=== PATIENT | female | born 1950 | race Caucasian/White ===

== ENCOUNTER → 2018-08-12 11:22 | Outpatient (CLI) | payer MEDICARE, OTHER, SELFPAY | PROVIDERS: PCP Nurse Practitioner Family; Visit Provider Nurse Practitioner Family | DX: R00.2 Palpitations (principal) | CPT/HCPCS: 93225; 93226 ==

== ENCOUNTER → 2020-03-09 11:17 | Outpatient (CLI) | payer MEDICARE, SELFPAY ==
--- NOTE | 2020-03-09 11:23 | XR_ITS ---
PROCEDURE: XR FOOT RT MIN 3V CLINICAL INDICATION: RT FOOT PAIN COMPARISON: No exams were available for comparison FINDINGS: No fracture or dislocation. No lytic or blastic change. There is normal mineralization. There are mild osteoarthritic changes of the midfoot with bony spurring along the dorsal aspect of the metatarsal tarsal joint. Other findings:None. IMPRESSION: Degenerative changes Dictated by: Francis Walls MD 03/09/2020 17:17 Francis Walls MD in [place] 03/09/2020 17:17
== END ==
PROVIDERS: PCP Nurse Practitioner Family; Visit Provider Nurse Practitioner Family
DX: M79.671 Pain in right foot (principal)
CPT/HCPCS: 73630

== ENCOUNTER → 2020-03-20 09:29 | Outpatient (CLI) | payer MEDICARE, SELFPAY ==
--- NOTE | 2020-03-20 09:30 | MR_ITS ---
PROCEDURE: MR FOOT RT WO/W CON CLINICAL INDICATION: Soft Tissue Mass of Right Foot COMPARISON: CR XR FOOT RT MIN 3V from 03/09/2020 TECHNIQUE: Routine multiplanar multi echo sequences are performed without and with gadolinium enhancement. FINDINGS: A marker is placed along the dorsal aspect of the foot in the midfoot area medially. This white area of palpable concern. At this region, there is prominent bony hypertrophy and spurring the 1st metatarsal tarsal joint at the junction of the cuneiform and the base of the 1st metatarsal. There is some minimal bone marrow edema at this region. Osteoarthritic changes are present at this joint. Mild edema also noted within the talus which is nonspecific. There is also some focal increased T2 signal involving the distal aspect of the cuboid consistent with subchondral cystic changes. There are osteoarthritic changes the 1st metatarsal tarsal joint. There is thinning of the ATFL which may be due to sprain or partial tear. The study is not tailored to the ankle. The PT FL and deltoid ligament appear intact. There is some edema on long the medial malleolar region. Soft tissue swelling is present at the ankle. Small amount fluid is present within the tendon sheath of the posterior tibialis and the flexor digitorum longus suggesting tenosynovitis. Flexor hallucis longus and Achilles tendon has an unremarkable appearance. This is suspicious for tear of the peroneus longus. The remaining tendon at the plantar region appears slightly prominent and may be due to tendon retraction. IMPRESSION: 1. Palpable abnormality corresponds to prominent bony hypertrophy/spurring at the 1st metatarsal tarsal joint. No cyst or soft tissue mass 2. Osteoarthritic changes as described above with subchondral cystic changes of the cuneiform. There is mild edema of the talus centrally and posteriorly which is of questionable etiology. 3. Suspect tear of the peroneus longus tendon. 4. Thinning of the ATFL suspicious for partial tear or sprain Dictated by: Francis Walls MD 04/15/2020 08:31 Francis Walls MD in [place] 04/15/2020 08:31
== END ==
PROVIDERS: PCP Nurse Practitioner Family; Visit Provider Podiatrist
DX: M79.89 Other specified soft tissue disorders (principal); M79.671 Pain in right foot; M89.8X7 Other specified disorders of bone, ankle and foot
CPT/HCPCS: 73720; A9576

== ENCOUNTER → 2020-04-15 10:50 | Outpatient (CLI) | payer MEDICARE, SELFPAY ==
--- NOTE | 2020-04-15 10:58 | XR_ITS ---
PROCEDURE: XR CHEST 2V CLINICAL HISTORY: SINUSITIS,CONGESTION COMPARISON: No exams were available for comparison FINDINGS: The cardiomediastinal silhouette and pulmonary vascularity are within normal limits. The lungs are clear without infiltrates, suspicious nodules, or pleural effusions. No acute bony abnormalities. IMPRESSION: No acute findings. Dictated by: Francis Walls MD 04/15/2020 16:42 Francis Walls MD in [place] 04/15/2020 16:42
--- NOTE | 2020-04-15 11:28 | ECG_ITS ---
APPROVED REPORT Exam: Resting ECG HR:60 bpm ECG Measurements Heart Rate 60 AXES UT 154 P 67 QRSd 70 QRS 74 QT 402 T 64 QTc 402 Conclusion Normal sinus rhythm Normal ECG Electronically signed by : Jono Hill, 04/15/2020 19:26:10
== END ==
PROVIDERS: PCP Nurse Practitioner Family; Visit Provider Podiatrist
DX: Z01.818 Encounter for other preprocedural examination (principal); M89.8X7 Other specified disorders of bone, ankle and foot; M79.89 Other specified soft tissue disorders
CPT/HCPCS: 71046; 93005

== ENCOUNTER 2020-04-21 06:16 | Day surgery (SDC) | payer MEDICARE, SELFPAY ==
[2020-04-19 09:22] VITALS: BMI 30.9
[2020-04-21] VITALS (11 sets, daily range): BP systolic 117–149; BP diastolic 64–88; PULSE 51–73; RESP 12–18; TEMP 36.2–43; O2SAT 93–97
--- NOTE | 2020-04-21 07:19 | HMH.OPNOTE ---
Date of procedure: 04/21/20 Pre-op Diagnosis:: 1. Right foot exostosis 2. Right foot soft tissue mass Post-op Diagnosis:: Same Procedure performed:: 1. Right foot exostectomy 2. Right foot excision of soft tissue mass Surgeon:: Brigitte Vanessa DPM [employer]KE [employer]ILL CLEANER:: Timur Degroot Anesthesia: local (30cc 0.5% marcaine plain) Estimated blood loss (mL): 10 Clinical Note:: This is a 69-year-old female who presents for follow-up of her right foot pain. She had recent MRI 03/20/2020 to evaluate for exostosis and possible soft tissue mass. She reports pain with closed toed shoe gear and compression. She has failed conservative care, treatment included ice, elevation, NSAIDs, strapping, taping, modification of shoe gear, stretching, ROM. Conservative treatment discussed but has been exhausted. We discussed surgery including removal of the dorsal spurring and excision of any fluid or mass. Patient does have arthritis we discussed the cause of the exostosis is secondary to arthritis and joint jamming. Patient does not want to have extensive surgery at this time. We discussed arthrodesis, tendon repairs. Patient would just like to proceed with removing the spur so she can continue wearing close toed shoes and exercise regularly, walks twice daily with her dog she understands that there is a chance that she may continue to have pain secondary to arthritis. All risks and benefits were discussed including but not limited to: recurrence of the mass, damage to blood vessels and nerves, bleeding, infection, wound complications, need for further surgery, prolonged swelling of the extremity, prolonged pain, RSD/CRPS, DVT/PE, and anesthetic complications including . No guarantees were given. All questions fully answered. The patient verbalized understanding and agreed to proceed with surgery. Consent was obtained. Necessary labs and pre-op testing ordered including ekg, cxr and covid. Patient saw her PCP for [place] 03/04/2020. Labs taken: Glucose 71, potassium 5.7, hemoglobin A1c 6.2%, lipid panel and microalbumin within normal limits. Pt was given a Rx for Percocet 5/325, Zofran, Naproxen. A pre-fabricated nonpneumatic short fracture (walking) was dispensed and fitted at office visit. She has walker and cane at home. Operative findings:: Large dorsal exostosis noted to the medial dorsal foot over the metatarsal cuneiform joint. Less than 1 x 1 cm ganglion cyst with gel-filled fluid noted overlying extensor tendon. Small amount of synovial fluid located within the joint. No signs of infection noted. Operative note:: On this date and time, the patient was deemed an appropriate surgical candidate. With informed consent signed, the patient was taken to the operating theater. The patient was positioned supine. General anesthesia was induced. Tourniquet was applied to the right mid calf. The right lower extremity was prepped and draped in normal sterile fashion. RIGHT EXCISION OF GANGLION CYST/SOFT TISSUE MASS: The tourniquet was inflated at 225 mmHg. Attention was directed to the dorsal foot where the lazy S incision was mapped out extending over the dorsal first metatarsal cuneiform joint. Dissection was carried through skin to subcutaneous tissue with care taken to maintain surgical hemostasis and safely retract neurovascular structures. The extensor tendons were visualized and soft tissue mass noted over the extensor just superior to the joint. The soft tissue mass suspected ganglion cyst was dissected and was approximately 1x1 cm, gently clear fluid noted. The ganglion cyst was excised and sent to pathology as a specimen. The wound was flushed with copious amounts normal sterile saline. RIGHT FOOT EXOSTECTOMY: Dissection was then carried down to the level of the bone. Bony prominence noted over the 1st metatarsal base and cuneiform. Cartilage worn to the joint. Rondure was used to remove dorsal spur. Power reciprocating rasp then used to smooth down the area. Wound was flushed with copi
--- NOTE | 2020-04-21 08:05 | P.PN_ITS ---
[facility] Anesthesia Checklist - Structural Data Admitted From: Home Planned Operative Procedure/s: removal mass r foot Consent for Planned Operative Procedure(s) Verified: Yes - Additional verifications Anesthesia Reactions: Yes (drowsiness) Hx Blood Transfusions: No Blood Transfusion Reaction: No - Airway Assessment C-Spine Mobility Assessed: Yes TMJ Mobility Assessed: Yes Dentition: Good Dentition - Neurological Assessment Level of Consciousness: Awake, Alert, Appropriate - Anesthesia Plan Anesthesia Risk discussed: Yes Anesthesia Plan: Verified ASA Class: II Anesthesia Type: General [facility] History I have reviewed the patient's past medical history: Yes Medical History: Reports:: Anxiety, Diabetes Mellitus Type 2 Denies:: Cancer, Diabetes Mellitus Type 1, Internal Pacemaker, MRSA, Seizures *Have you ever received a pneumonia vaccine?: No *Have you received a flu vaccine this season?: No Other Medical History: Denies: Blood Transfusion Reaction Anesthesia experience/problems:: none Other Surgeries: Yes: No Previous Surgery, Colonoscopy. No: Pacemaker Amputation: No - *Social History Last grade of school completed: Some college Smoking Status: Never smoker Alcohol Intake: current Alcohol Intake Frequency:: holidays/special occasions only Substance Use Type: denies use *Occupational Status:: retired Housing: house Household Members: spouse *Travel in the last 8 weeks: None - Psychiatric History Pschychiatric History:: Reports:: Anxiety Family Hx:: Diabetes, Cancer, Hypertension
--- NOTE | 2020-04-21 08:06 | HMH.ANESI ---
[facility] Anesthesia Record Part I Intake, IV Amount: 1,000 Estimated blood loss (mL): 0 Urine output (mL): 0 Blood Pressure: 149/85 SaO2: 93 Pulse Rate: 73 Respiratory Rate: 12 Temperature: 97.4 F Patient is:: Awake, Stable Stable to PACU at:: 08:00
--- NOTE | 2020-04-21 08:39 | SUR.PHASEI ---
[id number]
--- NOTE | 2020-04-21 09:00 | XR_ITS ---
PROCEDURE: XR FOOT RT MIN 3V CLINICAL INDICATION: Post op exostectomy COMPARISON: CR XR FOOT RT MIN 3V from 03/09/2020 FINDINGS: Status post exostectomy at the dorsal aspect the 1st metatarsal tarsal junction. Good alignment with no acute finding. IMPRESSION: Interval exostectomy at the 1st metatarsal tarsal junction Dictated by: Francis Walls MD 04/21/2020 10:43 Francis Walls MD in [place] 04/21/2020 10:43
[2020-04-21 09:31] LABS: POC Glucose,Bedside 84 (70-110)
[2020-04-21 11:44] LABS: POC Glucose,Bedside 87 (70-110)
--- NOTE | 2020-04-22 10:35 | P.PN_ITS ---
[facility] Anesthesia Record Part II Discharge Time: 08:30 Destination: [facility] PACU nurse assessment reviewed?: Yes Patient Condition:: Good Anesthesia Complications:: None Swallowing reflex intact?: Yes Cyanosis?: No Blood Pressure: 135/64 Pulse Rate: 60 Temperature: 98.0 F Mental Status: Alert & Oriented Pain level:: 0 Nausea and/or vomitting:: None Intake, IV Amount: 1,500
[2020-04-22 10:37] VITALS: BP 135/64; PULSE 60; TEMP 36.7
== END 2020-04-21 09:10 | disposition home or self-care (01) ==
LOC: OR 06:19
PROVIDERS: PCP Nurse Practitioner Family; Visit Provider Podiatrist
PROC: (CPT 28090; principal; 2020-04-21 07:30)
DX: M77.51 Other enthesopathy of right foot and ankle (principal); M19.071 Primary osteoarthritis, right ankle and foot; M67.471 Ganglion, right ankle and foot; E11.9 Type 2 diabetes mellitus without complications; Z79.84 Long term (current) use of oral hypoglycemic drugs; Z79.899 Other long term (current) drug therapy; M79.671 Pain in right foot
CPT/HCPCS: 28090; 28104; 73630; 82962; 88305; 88311; 96374; J2405

== ENCOUNTER → 2020-11-24 10:36 | Outpatient (CLI) | payer MEDICARE, SELFPAY ==
--- NOTE | 2020-11-24 10:36 | MM_ITS ---
PROCEDURE: MM DIG SCREENING MAMM BI W/CAD Digital Breast Tomosynthesis Included CLINICAL INDICATION: screening mammogram COMPARISON: No exams were available for comparison TECHNIQUE: Standard CC and MLO images and 3D Tomosynthesis was obtained. R2 CAD reviewed. FINDINGS: Fatty day average fibroglandular tissue. There are multiple small bilateral benign-appearing nodular opacities and benign-appearing calcifications. A small cluster probably benign calcifications are present in the central aspect of the left breast. No malignant appearing mass or malignant-appearing microcalcification. No skin thickening or adenopathy. IMPRESSION: Probably benign findings. Suggest 6 month follow-up to confirm a stable baseline. BI-RAD Category: 3 Probably Benign Finding Short Term Follow-Up FOLLOW-UP: 6M 6 Month Follow-up (A letter has been sent to the patient regarding results of the study.) Dictated by: Francis Walls MD 11/29/2020 13:38 Francis Walls MD in [place] 11/29/2020 13:38
== END ==
PROVIDERS: PCP Nurse Practitioner Family; Visit Provider Obstetrics & Gynecology
DX: Z12.31 Encounter for screening mammogram for malignant neoplasm of breast (principal)
CPT/HCPCS: 77063; 77067

== ENCOUNTER → 2020-12-08 17:42 | Outpatient (CLI) | payer MEDICARE, SELFPAY | PROVIDERS: Visit Provider Nurse Practitioner Family | DX: R30.0 Dysuria (principal) | CPT/HCPCS: 87086; 87088; 87186 ==

== ENCOUNTER → 2021-03-08 11:05 | Outpatient (CLI) | payer MEDICARE, SELFPAY ==
[2021-03-08 11:49] LABS: Alanine Aminotransferase 19 U/L (12-78); Albumin Level 4.7 g/dl (3.5-5.0); Albumin/Globulin Ratio 1.8 (1.1-1.8); Alkaline Phosphatase 83 U/L (38-126); Anion Gap 9.4 mEq/L (5-15); Aspartate Amino Transferase 29 U/L (14-36); Bilirubin,Total 1.5 mg/dl (0.2-1.3); Blood Urea Nitrogen 13 mg/dl (7-17); Calcium 10.9 mg/dl (8.4-10.2); Carbon Dioxide 30 mmol/L (22.0-30.0); Chloride 105 mmol/L (98-107); Chol/HDL Ratio 3.5 (1-3.5); Cholesterol 263 mg/dl (140-200); Estimated Glomerular Filt Rate 83 ml/min (>60); GFR (African American) 101 ML/MIN (>60); Globulin 2.6 g/dL (1.3-3.2); Glucose 100 mg/dl (74-100); HDL Cholesterol 75 mg/dl (40-60); Potassium 4.4 mmoL/L (3.5-5.1); Sodium 140 mmol/L (136-145); Total Protein,Serum 7.3 g/dl (6.3-8.2); Triglycerides 145 mg/dl (30-150); VLDL Cholesterol 29 mg/dL (0-40)
[2021-03-08 12:01] LABS: Direct LDL Cholesterol 157.56 mg/dL (100-129)
[2021-03-08 12:02] LABS: Hemoglobin A1C 5.8 % (4.0-6.0)
[2021-03-08 12:07] LABS: 25-OH Vitamin D, Total 48.3 ng/mL (30-100)
== END ==
PROVIDERS: Visit Provider Nurse Practitioner Family
DX: E11.29 Type 2 diabetes mellitus with other diabetic kidney complication (principal); E55.9 Vitamin D deficiency, unspecified; Z79.84 Long term (current) use of oral hypoglycemic drugs
CPT/HCPCS: 36415; 80053; 80061; 82306; 83036

== ENCOUNTER → 2021-05-30 14:25 | Outpatient (CLI) | payer MEDICARE, SELFPAY ==
--- NOTE | 2021-05-30 14:26 | MM_ITS ---
PROCEDURE INFORMATION: Exam: MG Left Diagnostic Breast Tomosynthesis Exam date and time: 05/30/2021 2:26 PM Age: 71 years old Clinical indication: Six-month follow-up for nodular opacities and left breast calcifications TECHNIQUE: Imaging protocol: Left Diagnostic tomosynthesis and 2D mammography including computer-aided detection (CAD) when performed. Unilateral or bilateral exam. COMPARISON: MG MM DIG SCREENING MAMM BI W/CAD 11/24/2020 10:42 AM FINDINGS: MAMMOGRAPHY: The breast tissue is composed of scattered areas of fibroglandular density. There is no stellate mass, architectural distortion or suspicious microcalcifications to suggest malignancy. No skin thickening or axillary adenopathy. IMPRESSION: No mammographic evidence of malignancy. Annual bilateral mammographic screening is recommended in October 2021 unless otherwise clinically indicated. ASSESSMENT: BI-RADS Category 1: Negative
== END ==
PROVIDERS: PCP Nurse Practitioner Family; Visit Provider Obstetrics & Gynecology
DX: N64.4 Mastodynia (principal)
CPT/HCPCS: 77061; 77065; G0279

== ENCOUNTER 2021-06-23 17:26 | Emergency (ER) | payer MEDICARE, SELFPAY ==
[2021-06-23 19:00] VITALS: BP 161/98; PULSE 68; RESP 19; TEMP 36.8; O2SAT 98; BMI 29.0
[2021-06-23 19:57] VITALS: BP 161/98; PULSE 68; RESP 19; TEMP 36.8; O2SAT 98
--- NOTE | 2021-06-23 20:00 | HMH.EDUTC ---
[facility] Disposition Clinical Impression: Finger laceration Qualifiers: Encounter type: initial encounter Finger: thumb Damage to nail status: without damage Foreign body presence: unspecified Laterality: left Qualified Code(s): S61.012A - Laceration without foreign body of left thumb without damage to nail, initial encounter Disposition: Home, Self-Care Condition on Discharge: Good Instructions: DI for Laceration Repair, How to Care for a Laceration After Repair Additional Instructions: Suture instructions: You have required stitches today. Please read the following instructions so you know how to care for them: 1. Keep wound area dry for the first 24 hours. 2 May clean gently with mild soap and water, after 48 hours to prevent crusting over suture knots. 3. You may shower if your provider gives permission but do not take a bath until the skin is healed.. 4. Never leave a wet dressing or Band-Aid on your stitches as this allows bacteria to reach the area and may cause infection. Band-aids can cause the wound to sweat and not recommended to wear for long periods of time Watch for signs of infection: Increasing redness, tenderness or warmth around the suture site Unusual swelling around the site Appearance of pus around each suture or any red streaks Fever If you develop any of the above signs or symptoms of infection, Follow up with Family Physician immediately 5. Suture removal in _7-10___days 6. Return to [facility] or follow up with family doctor for removal. This can be done by any medical provider during regular hours on Sunday through Sunday, by appointment. Referrals: Emma Loomis APRN [Primary Care Provider] - As needed Time of Disposition: 20:08 Medical Decision Making - Syed Inquiry Pt receiving controlled substance: No Syed was queried for this patient: No Vital Signs: 06/23/21 19:00 06/23/21 19:57 Temperature 98.3 F 98.3 F Temperature Source Oral Pulse Rate 68 Pulse Rate [Right Brachial] 68 Respiratory Rate 19 19 Blood Pressure 161/98 H Blood Pressure [Right Arm] 161/98 H Blood Pressure Mean [Right Arm] 119 Blood Pressure Source [Right Arm] Automatic Cuff Blood Pressure Position [Right Arm] Sitting 02 Sat by Pulse Oximetry 98 Oxygen Delivery Method Room Air [facility] HPI - General Stated complaint: Ao06/23/21@1715 R thumb lac Time Seen by Provider: 06/23/21 20:00 Mode of Arrival: Ambulatory Source of Information: Patient Limitations: No Limitations Description of Symptoms (Recalled from Triage Doc. by RN): PATIENT C/O LACERATION TO LEFT THUMB AFTER CUTTING IT ON A VEGGIE SLICER HEENT Symptoms (Recalled from RN notes): No Resp Symptoms (Recalled from RN notes): No Skin Symptoms (Recalled from RN notes): Yes MS Symptoms (Recalled from RN notes): No Functional Status (Recalled from RN notes): WNL - History of Present Illness Provider Complaint: Patient states that she was using a veggie slicer and it slipped and cut her on her left thumb States she applied pressure to help with the bleeding States that they brought her in to get her checked and her finger laceration fixed - Related Data Home Medications Medication Instructions Recorded Confirmed alprazolam 0.5 mg tablet 0.5 mg PO DAILY tab 03/15/20 05/27/20 ascorbic acid 100 mg-elderberry 100 tab PO DAILY 03/15/20 05/27/20 fruit 50 mg chewable tablet calcium carb 300 mg-D3 800 1 tab PO DAILY 03/15/20 05/27/20 unit-mag ox 25 mg-ems helicopter pilot 0.5 mg-bhanu-Zn tablet lisinopril 10 mg tablet 10 mg PO DAILY tab 03/15/20 05/27/20 metformin 500 mg tablet 500 mg PO DAILY tab 03/15/20 05/27/20 milk thistle 150 mg capsule 150 mg PO DAILY 03/15/20 05/27/20 vitamin B complex 1 tab PO DAILY 03/15/20 05/27/20 Allergies Allergy/AdvReac Type Severity Reaction Status Date / Time No Known Allergies Allergy Verified 11/11/20 15:36 - Worker's Comp Is this a Worker's Comp case?: No [facility] History - Hepatitis A Screen Drug use hist
== END 2021-06-23 20:21 | disposition home or self-care (01) ==
PROVIDERS: Emergency Provider Nurse Practitioner; PCP Nurse Practitioner Family
DX: S61.012A Laceration without foreign body of left thumb without damage to nail, initial encounter (principal); E11.9 Type 2 diabetes mellitus without complications; F41.9 Anxiety disorder, unspecified; Z79.84 Long term (current) use of oral hypoglycemic drugs; Z79.899 Other long term (current) drug therapy; Z82.49 Family history of ischemic heart disease and other diseases of the circulatory system; Z83.3 Family history of diabetes mellitus; Z80.9 Family history of malignant neoplasm, unspecified
CPT/HCPCS: 12001; 99283

== ENCOUNTER → 2021-09-06 09:50 | Outpatient (CLI) | payer MEDICARE, SELFPAY ==
[2021-09-06 10:56] LABS: Basophils # 0.2 K/mm3 (0-0.2); Basophils % 4.3 % (0.1-2.0); Eosinophils # 0.1 K/mm3 (0.0-0.4); Eosinophils % 1.8 % (0.1-12.0); Hematocrit 44.4 % (37.0-47.0); Hemoglobin 14.8 g/dL (12.2-16.2); Lymphocytes # 1.6 K/mm3 (0.7-4.5); Lymphocytes % 29.3 % (10-50); Mean Corpuscular HGB Conc 33.3 g/dL (31.8-35.4); Mean Corpuscular Hemoglobin 31.6 pg (27.0-31.2); Mean Corpuscular Volume 94.9 fl (81-99); Mean Platelet Volume 9.1 fl (7.4-10.4); Monocytes # 0.3 K/mm3 (0.1-1.0); Monocytes % 5.7 % (1.7-9.3); Neutrophils # 3.5 K/mm3 (1.8-7.8); Neutrophils % 63.1 % (37.0-80.0); Platelet Count 154 K/mm3 (142-424); Red Blood Count 4.68 M/mm3 (4.20-5.40); Red Cell Distribution Width 13.3 % (11.5-17.5); White Blood Count 5.6 K/mm3 (4.8-10.8)
[2021-09-06 11:20] LABS: Chloride 108 mmol/L (98-107); Potassium 4.4 mmoL/L (3.5-5.1); Sodium 140 mmol/L (136-145)
[2021-09-06 11:22] LABS: Alanine Aminotransferase 17 U/L (12-78); Aspartate Amino Transferase 24 U/L (14-36); Blood Urea Nitrogen 13 mg/dl (7-17); Estimated Glomerular Filt Rate 83 ml/min (>60); GFR (African American) 100 ML/MIN (>60)
[2021-09-06 11:23] LABS: Albumin Level 4.3 g/dl (3.5-5.0); Alkaline Phosphatase 74 U/L (38-126); Anion Gap 10.4 mEq/L (5-15); Bilirubin,Total 0.8 mg/dl (0.2-1.3); Calcium 10.7 mg/dl (8.4-10.2); Carbon Dioxide 26 mmol/L (22.0-30.0); Cholesterol 215 mg/dl (140-200); Globulin 2.1 g/dL (1.3-3.2); Glucose 102 mg/dl (74-100); Total Protein,Serum 6.4 g/dl (6.3-8.2); Triglycerides 97 mg/dl (30-150); VLDL Cholesterol 19 mg/dL (0-40)
[2021-09-06 11:24] LABS: Chol/HDL Ratio 3.6 (1-3.5); HDL Cholesterol 59 mg/dl (40-60)
[2021-09-06 11:35] LABS: Direct LDL Cholesterol 134.31 mg/dL (100-129)
[2021-09-06 11:53] LABS: Hemoglobin A1C 5.6 % (4.0-6.0)
[2021-09-06 12:17] LABS: Microscopic, Urine URINE MICROSCOPIC (MICROSCOPIC)
[2021-09-06 13:13] LABS: Appearance,Urine CLOUDY (Clear); Bilirubin,Urine Negative (Negative); Blood, Urine Negative (Negative); Color,Urine YELLOW (Yellow); Glucose,Urine (UA) Negative (Negative); Ketones,Urine Negative (Negative); Leukocyte Esterase,Urine 2+ (Negative); Nitrate,Urine Negative (Negative); Protein,Urine Negative (Negative); Urobilinogen,Urine 0.2 EU/dl (0.2)
[2021-09-06 13:37] LABS: Bacteria,Urine 4+ /lpf; RBC,Urine Occasional #/hpf (0-3); WBC,Urine 20-50 #/hpf (0-3)
== END ==
PROVIDERS: PCP Nurse Practitioner Family; Visit Provider Nurse Practitioner Family
DX: E11.29 Type 2 diabetes mellitus with other diabetic kidney complication (principal); R30.0 Dysuria; E78.5 Hyperlipidemia, unspecified; B95.2 Enterococcus as the cause of diseases classified elsewhere; Z79.84 Long term (current) use of oral hypoglycemic drugs
CPT/HCPCS: 36415; 80053; 80061; 81001; 83036; 85025; 87086; 87088; 87186

== ENCOUNTER 2022-02-26 08:08 | Emergency (ER) | payer MEDICARE, SELFPAY ==
[2022-02-26 09:00] VITALS: BP 170/81; PULSE 67; RESP 22; TEMP 36.7; O2SAT 98; BMI 27.6
--- NOTE | 2022-02-26 09:39 | EXP.UTC ---
Discharge Plan Disposition Patient Disposition: Home, Self-Care Condition: Good Prescriptions Prescriptions: No Action lisinopril 10 mg tablet 10 mg PO DAILY alprazolam 0.5 mg tablet 0.5 mg PO DAILY metformin 500 mg tablet 500 mg PO DAILY Caltrate + D3 Plus Minerals 300 mg-800 unit -25 mg-0.5 mg tablet 1 tab PO DAILY ascorbic acid-elderberry fruit [Airborne (elderberry)] 100-50 mg tablet,chewable 100 tab PO DAILY milk thistle 150 mg capsule 150 mg PO DAILY Rx Instructions: give with meal/snack vitamin B complex [B Complex-Vitamin B12] Tablet 1 tab PO DAILY Referrals Follow up/Referrals: Ethan Cardona MD [Physician] - See instructions Emma Loomis APRN [Primary Care Provider] - See instructions Activity Restrictions/Add. Instructions Additional Instructions/Restrictions: Saline flushes and spray may help with discomfort Follow up with ENT for further treatment and evaluation Call tomorrow for appointment Return if needed Straight to ER if any life threatening symptom Cool mist humidifier may help with nasal discomfort Follow up with your Family Doctor if needed Over the counter Motrin if you can take or Tylenol to help with the pain Continue to alternate warm and cool compresses Clinical Impressions Clinical Impression: Nasal discomfort Instructions Patient Instructions: DI for Nasal Congestion Discharge ED Provider: Adrienne Nation [facility] General Stated complaint: Possible reaction to medication, high BP Mode of Arrival: Ambulatory Source of Information: Patient Limitations: No Limitations Time Seen by Provider: 02/26/22 09:39 Description of Symptoms (Recalled from Triage Doc. by RN): PATIENT C/O SINUS PAIN X 10 DAYS. SHE REPORTS SHE WAS SEEN BY PCP ON SUNDAY AND WAS GIVEN FLONASE AND STEROIDS, BUT STATES IT IS NOT HELPING AND THE STEROIDS ARE RAISING HER BLOOD PRESSURE HEENT Symptoms (Recalled from RN notes): Yes Resp Symptoms (Recalled from RN notes): No Skin Symptoms (Recalled from RN notes): No MS Symptoms (Recalled from RN notes): No Functional Status (Recalled from RN notes): WNL History of Present Illness Provider Complaint: Patient state that about 10 days ago she was making cinnamon candy and she inhaled the steam from the candy she was making and it caused her polyps in her nose to start swelling State that she seen her PCP and they give her flonase but it didnt help with the pain so she called back and they sent her in some steriods States that she has been taking them and they have helped but they caused her blood pressure to go a little States that the swelling in her sinuses feels better but she wanted to see if there was something else she can do to help Related Data Home Medications Medication Instructions Recorded Confirmed alprazolam 0.5 mg tablet 0.5 mg PO DAILY Anxiety 03/15/20 05/27/20 ascorbic acid 100 mg-elderberry 100 tab PO DAILY Supplement 03/15/20 05/27/20 fruit 50 mg chewable tablet (Airborne (elderberry)) calcium carb 300 mg-D3 800 1 tab PO DAILY Supplement 03/15/20 05/27/20 unit-mag ox 25 mg-electron microscopist 0.5 mg-bhanu-Zn tablet (Caltrate + D3 Plus Minerals) lisinopril 10 mg tablet 10 mg PO DAILY bp 03/15/20 05/27/20 metformin 500 mg tablet 500 mg PO DAILY Diabetes 03/15/20 05/27/20 milk thistle 150 mg capsule 150 mg PO DAILY Supplement 03/15/20 05/27/20 vitamin B complex (B 1 tab PO DAILY Supplement 03/15/20 05/27/20 Complex-Vitamin B12 tablet) Allergies Allergy/AdvReac Type Severity Reaction Status Date / Time No Known Allergies Allergy Verified 11/11/20 15:36 Worker's Comp Is this a Worker's Comp case?: No [facility] Medical History (Updated 02/26/22 @ 09:51 by Adrienne Nation APRN) Anxiety Diabetes mellitus, type 2 Hypertension Social History (Updated 02/26/22 @ 09:27 by Magi Leyva RN) Smoking Status: Never smoker second hand exposure: No alcohol intake: current substa
[2022-02-26 09:53] VITALS: BP 170/81; PULSE 67; RESP 22; TEMP 36.7; O2SAT 98
== END 2022-02-26 09:58 | disposition home or self-care (01) ==
PROVIDERS: Emergency Provider Nurse Practitioner; PCP Nurse Practitioner Family
DX: R09.81 Nasal congestion (principal); I10 Essential (primary) hypertension; E11.9 Type 2 diabetes mellitus without complications; J32.9 Chronic sinusitis, unspecified; J33.9 Nasal polyp, unspecified; F41.9 Anxiety disorder, unspecified; Z79.84 Long term (current) use of oral hypoglycemic drugs; Z79.899 Other long term (current) drug therapy
CPT/HCPCS: 99213; G0463

== ENCOUNTER → 2022-05-15 11:00 | Outpatient (CLI) | payer MEDICARE, SELFPAY | PROVIDERS: PCP Otolaryngology; Visit Provider Otolaryngology | DX: J32.9 Chronic sinusitis, unspecified (principal) | CPT/HCPCS: 87070 ==

== ENCOUNTER 2024-11-14 10:56 | Outpatient (CLI) | payer MEDICARE, SELFPAY ==
--- OUTSIDE RECORDS SUMMARY | 2024-11-14 10:58 | XMS_ITS | Encounter Summary ---
Author Organization [facility] Address [address] [place] [address] Care Team Providers Care Compounder Name Role Phone Unavailable Primary Care Provider Unavailabl e Reason for Referral * Consultation (Routine) - Authorized Specialty Diagnoses / Procedures Referred By Elsi beard Referred To Contact Endocrinology Diagnoses Parathyroid related hypercalcemia (CMS/HCC) Emma Loomis APRN [address] [address] Phone: tel: fax: [facility] [address] [place] [phone] Phone: tel: fax: Referral ID Status Reason Start Date Expiration Date Visits Requested Visits Authorized [id number] Authorized Specialty Services Required 10/31/2024 05/02/2026 1 1 Encounter Details Date Type Department Care Team (Latest Contact Info) Description 10/31/2024 [facility] [address] [place] [address] Emma Loomis APRN [address] [address] Parathyroid related hypercalcemia (CMS/HCC) (Primary Dx) Social History Tobacco Use Types Packs/Day Years Used Date Smoking Tobacco: Never Assessed Comments Unknown Sex and Gender Information Value Date Recorded Sex Assigned at Not on file Legal Sex Female 10:12 AM EDT Gender Identity Not on file Sexual Orientation Not on file documented as of this encounter Plan of Treatment Upcoming Encounters Date Type Department Care Team (Late st Contact Info) Description 01/07/2025 10:40 AM EDT Office Visit [facility] [address], [address] [place] [address] Luis Eduardo Baltazar MD [address] [facility] [address] [place] [address] Scheduled Referrals Name Type Priority Associated Diagnoses Orde r Schedule Ambulatory referral to Endocrinology Outpatient Referral Routine Parathyroid related hypercalcemia (CMS/HCC) Expected: 10/31/2024 (Approximate), Expires: 05/04/2026 documented as of this encounter Visit Diagnoses Diagnosis Parathyroid related hypercalcemia (CMS/HCC)- Primary Hyperparathyroidism, unspecified documented in this encounter
--- OUTSIDE RECORDS SUMMARY | 2024-11-14 10:58 | XMS_ITS | Clinical Summary ---
Author Organization Healthcare Address [address] [place] [address] Care Team Providers Care Learning And Development Director Name Role Phone Unavailable Primary Care Provider Unavailabl e Encounters Date Type Department Care Team Description 10/31/2024 [facility] [address] [place] [address] Emma Loomis APRN Parathyroid related hypercalcemia (CMS/HCC) (Primary Dx) from Last 3 Months Social History Tobacco Use Types Packs/Day Years Used Date Smoking Tobacco: Never Assessed Comments Unknown Sex and Gender Information Value Date Recorded Sex Assigned at Not on file Legal Sex Female 10:12 AM EDT Gender Identity Not on file Sexual Orientation Not on file Plan of Treatment Upcoming Encounters Date Type Department Care Team (Late st Contact Info) Description 01/07/2025 10:40 AM EDT Office Visit [facility] [address], [address] [place] [address] Luis Eduardo Baltazar MD [address] [facility] [address] [place] [address] Health Maintenance Due Date Last Done Comments [facility]-Bone Density Scan 1952 [facility]-Depression Screening 1952 [facility]-Hepatitis C Screening 1950 [facility]-Medicare Annual Wellness (AWV) 1950 [facility]-/Child/Adol SDOH Screenings 1952 [facility]- SDOH Screenings 1970 [facility]-Adult SDOH Screenings 1970 [facility]-DTaP,Tdap,and Td Vaccine s (1 - Tdap) 06/10/1996 06/09/1996 CT Colonography 1997 Colonoscopy 1997 FIT-DNA 1997 FIT 1997 FOBT 1997 Sigmoidoscopy 1997 [facility]-Colorectal Cancer Screening 1997 [facility]-Breast Cancer Screening 2002 [facility]-Zoster Vaccines (1 of 2) 2002 [id number] Vaccine (2 - season) 2023 06/09/2020 [facility]-Influenza Vaccine (#1) 2024 [facility]-RSV Vaccine: 60+ Years o r (1 - 1-dose 75+ series) 2027 [facility]-Pneumococcal Vaccine: 50 + Years Completed 02/17/2019, 06/28/2017 HPV Vaccines Aged Out No longer eligi ble based on patient's age to complete this topic [facility]-HIB Vaccines Aged Out No longer e ligible based on patient's age to complete this topic [facility]-Hepatitis A Vaccines Aged Out No longer eligible based on patient's age to complete this topic [facility]-IPV Vaccines Aged Out No longer e ligible based on patient's age to complete this topic [facility]-Rotavirus Vaccines Aged Out No lo nger eligible based on patient's age to complete this topic Insurance [employer] MEDICARE
== END 2024-11-14 23:59 | disposition home or self-care (01) ==
LOC: RAD 10:56
PROVIDERS: PCP Otolaryngology; Visit Provider Nurse Practitioner Family
DX: R69 Illness, unspecified (principal)

== ENCOUNTER 2024-11-17 11:26 | Outpatient (CLI) | payer MEDICARE, SELFPAY ==
--- NOTE | 2024-11-17 11:29 | NM_ITS ---
FINAL REPORT CLINICAL HISTORY: ELEVATED PARATHYROID HORMONE 11:50am 18.3 [facility] sestamibi FINDINGS: PARATHYROID SCAN Procedure: The patient received a dose of 18.3 millicuries of technetium 99m sestamibi. Images over the neck were obtained initially and after a two-hour delay. Findings: On delayed images, localized activity is seen in the lower pole of the right thyroid, can not exclude pathologic adenopathy at this location. There is homogeneous distribution throughout the thyroid on early phase. IMPRESSION: Localized activity lower pole right thyroid on delayed images.. Reviewed, Interpreted and Dictated by Dennis Suarez MD Transcribed by Zoila Lazaro Authenticated and [facility]
--- OUTSIDE RECORDS SUMMARY | 2024-11-17 11:29 | XMS_ITS | Clinical Summary ---
Author Organization Healthcare Address [address] [place] [address] Care Team Providers Care Frontend Engineer Name Role Phone Unavailable Primary Care Provider Unavailabl e Encounters Date Type Department Care Team Description 10/31/2024 Community Orders [facility] [address] [place] [address] Emma Loomis APRN Parathyroid related hypercalcemia (CMS/HCC) [facility] [address], [address] [place] [address] Luis Eduardo Baltazar MD [address] [facility] [address] [place] [address] Health Maintenance Due Date Last [...] 2002 [facility]-Zoster Vaccines (1 of 2) 2002 [id number] Vaccine (2 - season) 2023 06/09/2020 [facility]-Influenza [...]
--- OUTSIDE RECORDS SUMMARY | 2024-11-17 11:29 | XMS_ITS | Encounter Summary ---
Author Organization [facility] Address [address] [place] [address] Care Team Providers Care Film Crew Member Name Role Phone Unavailable Primary Care Provider Unavailabl e Reason for Referral * Consultation (Routine) - Authorized Specialty Diagnoses / Procedures Referred By Elsi beard Referred To Contact Endocrinology Diagnoses Parathyroid related hypercalcemia (CMS/HCC) Emma Loomis APRN [address] [address] Phone: tel: fax: [facility] [address] [place] [phone] Phone: tel: fax: Referral ID Status Reason Start Date Expiration Date Visits Requested Visits Authorized [id number] Authorized Specialty Services Required 10/31/2024 05/02/2026 1 1 Encounter Details Date Type Department Care Team (Latest Contact Info) Description 10/31/2024 Community [facility] [address] [place] [address] Emma Loomis APRN [address] [address] Parathyroid related hypercalcemia (CMS/HCC) (Primary [...] Description 01/07/2025 10:40 AM EDT Office Visit [facility] [address], [address] [place] [address] Luis Eduardo Baltazar MD [address] [facility] [address] [place] [address] Scheduled Referrals Name Type Priority Associated Diagnoses Orde r Schedule Ambulatory referral to Endocrinology Outpatient Referral Routine Parathyroid related hypercalcemia (CMS/HCC) Expected: 10/31/2024 (Approximate), Expires: 05/04/2026 documented as of this encounter Visit Diagnoses Diagnosis Parathyroid related hypercalcemia (CMS/HCC)- Primary Hyperparathyroidism, unspecified documented in this encounter
[2024-11-17] MEDS: SODIUM CHLORIDE 0.9% 10ML SYR (RAD ONLY) 10 ML IV (11:57)
[2024-11-17] MEDS: ISO TC99M (SESTAMIBI);1 DOSE VIAL IV (11:57)
== END 2024-11-17 23:59 | disposition home or self-care (01) ==
LOC: RAD 11:27
PROVIDERS: PCP Nurse Practitioner Family; Visit Provider Nurse Practitioner Family
DX: R93.89 Abnormal findings on diagnostic imaging of other specified body structures (principal); R79.89 Other specified abnormal findings of blood chemistry
CPT/HCPCS: 78070; A9500

== ENCOUNTER 2025-01-16 10:09 | Outpatient (CLI) | payer MEDICARE, SELFPAY ==
--- OUTSIDE RECORDS SUMMARY | 2025-01-07 10:40 | XMS_ITS | Encounter Summary ---
Author Organization [facility] Address [address] [place] [address] Care Team Providers Care Box Toe Maker Name Role Phone Jono Hill MD Primary Care Provider [phone] Reason for Referral * Consultation (Routine) - Authorized Specialty Diagnoses / Procedures Referred By Contac t Referred To Contact Diagnoses Hypercalcemia Hyperparathyroidism (CMS/HCC) Luis Eduardo Baltazar MD [address] [place] [address] [address] Phone: tel: fax: Referral ID Status Reason Start Date Expiration Date V isits Requested Visits Authorized [id number] Authorized 01/07/2025 07/09/2026 1 1 Reason for Visit * Reason Comments Consult * Consultation (Routine) - Closed Specialty Diagnoses / Procedures Referred By Contac t Referred To Contact Endocrinology Diagnoses Parathyroid related hypercalcemia (CMS/HCC) Emma Loomis, ADULT PROBATION OFFICER [address] [address] Phone: tel: fax: [facility] [address] [place] [address] Phone: tel: fax: Referral ID Status Reason Start Date Expiration Date V isits Requested Visits Authorized [id number] Closed Specialty Services Required 10/31/2024 05/02/2026 1 1 Encounter Details Date Type Department Care Team ([facility] Contact Info) Description 01/07/2025 10:40 AM EDT Office Visit [facility] [address], [address] [place] [address] Luis Eduardo Baltazar MD [address] [place] [address] Hypercalcemia (Primary Dx); Hyperparathyroidism (CMS/HCC) Social History Tobacco Use Types Packs/Day Years Used Date Smoking Tobacco: Never Passive Smoke Exposure: Never Smokeless Tobacco: Never Tobacco Cessation:Counseling Given: Not Answered Alcohol Use Standard Drinks/Week Comments Never 0 (1 standard drink = 0.6 oz pur e alcohol) socially maybe a glass a month PHQ-2 Answer Date Recorded Patient Health Questionnaire-2 Score 2 01/07/2025 PHQ-9 Answer Date Recorded Patient Health Questionnaire-9 Score 6 01/07/2025 Comments Unknown Sex and Gender Information Value Date Recorded Sex Assigned at Not on file Legal Sex Female 10:12 AM EDT Gender Identity Not on file Sexual Orientation Not on file documented as of this encounter Last Filed Vital Signs Vital Sign Reading Time Taken Comments Blood Pressure 148/82 01/07/2025 12:17 PM EDT Pulse 56 01/07/2025 12:17 PM EDT Temperature 36.2 C (97.1 F) 01/07/2025 10:57 AM EDT Respiratory Rate - - Oxygen Saturation 95% 01/07/2025 10:57 AM EDT Inhaled Oxygen Concentration - - Weight 85.7 kg (188 lb 15 oz) 01/07/2025 10:57 A M EDT Height 161.3 cm (5' 3.5 ) 01/07/2025 10:57 AM ED T Body Mass Index 32.94 01/07/2025 10:57 AM EDT documented in this encounter Functional Status * Over the past 2 weeks, how often have you been bothered by any of the following problems? Question Answer Date of Assessment Author Little interest or pleasure in doing things More than half the days 01/07/2025 10:49 AM EDT Sweat, Summa L Feeling down, depressed, or hopeless Not at all 01/07/2025 10:49 AM EDT Sweat, Summa L Patient Health Questionnaire-2 Score 2 01/07/2025 10:49 AM EDT SweatCherie L * Question Answer Date of Assessment Author Trouble falling or staying asleep, or sleeping too much Not at all 01/07/2025 10:49 AM EDT SweatCherie L Feeling tired or having little energy Several days 01/07/2025 10:49 AM EDT SweatCherie L Poor appetite or overeating Nearly every day 10:49 AM EDT SweatCherie L Feeling bad about yourself - or that you are a failure or have let yourself or your family down Not at all 01/07/2025 10:49 AM EDT SweatCherie L Trouble concentrating on things, such as reading the newspaper or watching television Not at all 01/07/2025 10:49 AM EDT Sweat [place] L Moving or speaking so slowly that other people could have noticed? Or the opposite - being so fidgety or restless that you have been moving around a lot more than usual. Not at all 01/07/2025 10:49 AM EDT SweatCherie Thoughts that you would be better off or hurting yourself in some way Not at all 01/07/2025 10:49 AM EDT SweatCherie Patient Health Questionnaire-9 Score 6 01/07/2025 10:49 AM EDT SweatCherie * How difficult have these problems made it for you to do your work, take care of things at home, or get along with other people? Answer Date of Assessment Author Not difficult at all 01/07/2025 10:49 AM EDT Swe atCherie documented as of this encounter Miscellaneous Notes * Patient Instructions - Luis Eduardo Baltazar MD - 01/07/2025 10:40 AM EDT It was a pleasure meeting you today! I will check the calcium, and parathyroid and vitamin D levels I recommend a bone density scan to screen for osteoporosis .INSTRUCTIONS FOR 24 HOUR URINE COLLECTION The purpose of this test is to measure the total amount of either hormones or minerals that your body excretes into your urine within a 24 hour period. To do this, you need to collect all the urine that your body makes for 24 hours. 1. On the first day, when you wake up, note the time. Then go to the bathroom and urinate. This should be flushed down the toilet. It is not part of the collection. 2. On the first day, all subsequent urine voids need to be saved in the urine jug. Save the entire amount of each urine void. 3. When you go to sleep that night, if you happen to awaken throughout the night and banking teacher,those urine voids must also be saved. 4. On the second morning, awaken at the same time as you did on the first morning and go to the bathroom and urinate. Keep this entire urine void. This is the final part of the collection. 5.After you have finished the urine collection, keep it cool until you bring it into the laboratorywithin 24 hours of completion. Please return to the clinic in 4 months * Progress Notes - Irvin Harvey - 01/07/2025 10:40 AM EDT Merly Valdivia is a 74 y.o., female about whom I am asked to consult by Emma Flores, [place] hypercalcemia and hyperparathyroidism. She is here today with who was present for entire visit and provided additional history. PMHx: T2DM, HTN, HLD, Anxiety, Melanoma. HYPERCALCEMIA: Ms. Flori Valdivia was first found to have an elevated serum calcium of 10.7 in the setting of routine blood work by PCP in September 2024. Reports she used to have polyuria but drank a lot of tea in the past and no longer as that issue, denies polydipsia, or nocturia. Denies any GI symptoms, no constipation diarrhea, nausea or vomiting.No history of Kidney stones or CKD. Does have a history of a few melanoma spots on her legs that have been removed. Mother has a history of ovarian cancer and father prostate CA. There is no history of osteoporosis/osteopenia or fractures. Has never had a DXA done in the past. METABOLIC BONE HEALTH: Calcium intake: No overly excess calcium intake, drinks milk on occasion, eats yogurt. Vitamin D intake: Was taking Vit D supplement in the past, but stopped once told about high calciumlevels. Has 2 recent falls, one in July and one December. Family history of osteoporosis: Maybe mother had hers checked. Parental history of hip fracture: Not that she knows of Regular menses in the past. Menopause: Late 50's, no hormone therapy. Past Medical History[1] Surgical History[2] Current Medications[3] Allergies[4] Social History[5] Family History[6] There is no family hx of hypercalcemia, nephrolithiasis, hip fracture, osteoporosis or thyroid disease. Review of Systems: See HPI Review of Systems All other systems reviewed and are negative. A complete ROS was otherwise negative in detail Objective Physical Exam: BP (!) 148/82 Pulse 56 Temp (!) 36.2 ??C (97.1 ??F) (Skin) Ht 1.613 m (5' 3.5 ) Wt 85.7 kg (188 lb 15 oz) BMI 32.94 kg/m?? GEN:Sitting up comfortably, well appearing, non-Cushingoid EYES: sclera anicteric, extraocular motion grossly intact HENT: OP clear Neck: no palpable abnormalities in the thyroid; non-tender submandibular and parotid salivary glands; no supraclavicular fat pads Lymphatic: normal anterior, posterior and supraclavicular cervical lymph nodes PULM: No increased work of breathing, completing full sentences, symmetric chest rise CV: Normal rate, regular rhythm EXT: Warm well perfused NEURO: A&Ox4. No dysarthria. SKIN: normal temperature/texture, no ecchymoses; normal pigmentation, PSYCH: normal mood and affect Date Ca Alb ICa iPTH 25D Alk Phos Phos Cr eGFR Uca/Ucr TSH FT4 10/28/24 10.7 98 Assessment/Plan #Hypercalcemia #Hyperparathyroid: - Was found to have elevated Calcium and PTH on labs by PCP. Reports this is the first time hearingabout high calcium but per PCP notes persistent elevation, unsure how long Ca has been elevated due to not having past labs. Unsure of vit D level, albumin, and kidney function without prior labs. - Clinically asymptomatic, no history of Kidney stones, no abdominal pain, no confusion. Has has had many falls without fracture, but has never had DXA done. Denies any history of CKD, no excessive Calcium/Vit D intake. Was taking Vit D supplement in the past, but stopped once hearing about high calcium. - 10/28/24 PTH 98, Calcium 10.7 elevated. Plan: - Clinically asymptomatic but labs suspicious for primary hyperparathyroidism. - Will investigate further with CMP, iCal, Mag, Phos, iPTH and 25 hydroxy Vitamin D now. - Check 24 hour urine calcium and creatinine now to rule out FHH - DXA ordered to assess bone density. - After determining etiology will discuss potential treatment options depending on symptom severity. I have answered all of my patient's questions to the best of my ability. RTC in 4 Months I would like to thank Emma Flores APRN for the opportunity to participate in the care ofMs. Flori Valdivia. Electronically signed by: Irvin Harvey MS4. Orders Placed This Encounter Procedures Dexa Bone Density Dexa Bone Density Extremity PTH Intact Total Magnesium, Plasma Phosphorus, Plasma Ionized calcium, serum Vitamin D 25 Hydroxy Comprehensive Metabolic Panel, Plasma Calcium, 24 Hour Urine Creatinine, 24 Hour Urine Follow Up [facility] [1] History reviewed. No pertinent past medical history. [2] History reviewed. No pertinent surgical history. [3] Current Outpatient Medications: ALPRAZolam (Xanax) 0.5 MG tablet, , Disp: , Rfl: BABY ASPIRIN PO, Take by mouth., Disp: , Rfl: lisinopril 10 MG tablet, , Disp: , Rfl: [4] No Known Allergies [5] Social History Tobacco Use Smoking status: Never Passive exposure: Never Smokeless tobacco: Never Substance Use Topics Alcohol use: Never Comment: socially maybe a glass a month Drug use: Never [6] History reviewed. No pertinent family history. Cosigned by Luis Eduardo Baltazar MD at 01/08/2025 6:41 PM EDT Associated attestation - Luis Eduardo Baltazar MD - 01/08/2025 6:41 PM EDT I saw and evaluated the patient with the medical student. I discussed the case with the medical student and agree with the findings and plan as documented. I personally performed the Exam and MedicalDecision Making. documented in this encounter Plan of Treatment Upcoming Encounters Date Type Department Care Team (Late st Contact Info) Description 02/03/2025 10:00 AM EST Appointment [facility] [address], [address] [place] [address] 02/03/2025 10:20 AM EST Appointment [facility] [address], [address] [place] [address] 05/18/2025 11:20 AM EST Office Visit [facility] [address], [address] [place] [address] Luis Eduardo Baltazar MD [address] [facility] [address] [place] [address] Scheduled Orders Name Type Priority Associated Diagnoses Orde r Schedule Dexa Bone Density Imaging Routine Hypercalcemia Hyperparathyroidism ([facility]/HCC) Expected: 01/07/2025 (Approximate), Expires: 07/11/2026 Dexa Bone Density Extremity Imaging Routine Hypercalcemia Hyperparathyroidism ([facility]/HCC) Expected: 01/07/2025 (Approximate), Expires: 07/11/2026 Calcium, 24 Hour Urine Lab Routine Hypercalcemia Hyperparathyroidism ([facility]/HCC) Expected: 01/07/2025, Expires: 07/11/2026 Creatinine, 24 Hour Urine Lab Routine Hypercalcemia Hyperparathyroidism ([facility]/HCC) Expected: 01/07/2025, Expires: 07/11/2026 Scheduled Referrals Name Type Priority Associated Diagnoses Orde r Schedule Follow Up [facility] Outpatient Referral Routine Hypercalcemia Hyperparathyroidism ([facility]/HCC) Expected: 05/10/2025, Expires: 07/11/2026 documented as of this encounter Results * (ABNORMAL) Comprehensive Metabolic Panel, Plasma (01/07/2025 12:32 PM EDT) Pathologist [facility] Glucose, Plasma 104(H) 74 - 99 mg/dL 01/07/2025 3:02 PM EDT [facility] BUN, Plasma 14 8 - 23 mg/dL 01/07/2025 3:02 PM EDT [facility] Creatinine, Plasma 0.72 0.60 - 1.10 mg/dL 01/07/2025 3:02 PM EDT [facility] BUN/Creatinine Ratio 19 01/07/2025 3:02 PM EDT [facility] Sodium, Plasma 144 136 - 145 mmol/L 01/07/2025 3:02 PM EDT [facility] Potassium, Plasma 4.5 3.6 - 4.9 mmol/L 01/07/2025 3:02 PM EDT [facility] Chloride, Plasma 106 97 - 107 mmol/L 01/07/2025 3:02 PM EDT [facility] CO2, Plasma 25 22 - 29 mmol/L 01/07/2025 3:02 PM EDT [facility] Anion Gap 13 6 - 16 mmol/L 01/07/2025 3:02 PM EDT [facility] Total Calcium, Plasma 10.9(H) 8.9 - 10.2 mg/dL 01/07/2025 3:02 PM EDT [facility] Total Protein 7.1 6.3 - 7.9 g/dL 01/07/2025 3:02 PM EDT [facility] Albumin, Plasma 4.5 3.5 - 5.2 g/dL 01/07/2025 3:02 PM EDT [facility] AST, Plasma 23 10 - 35 U/L 01/07/2025 3:02 PM EDT [facility] ALT, Plasma 14 10 - 35 U/L 01/07/2025 3:02 PM EDT [facility] Alkaline Phosphatase, Plasma 95 46 - 142 U/L 01/07/2025 3:02 PM EDT [facility] Total Bilirubin, Plasma 0.7 0.2 - 1.1 mg/dL 01/07/2025 3:02 PM EDT [facility] eGFRcr 89.0 mL/min/1.7 3m*2 01/07/2025 3:02 PM EDT [facility] Comment:Reported eGFRcr in m L/min/1.73m2 is based the CKD-EPI 2020 equation that does not use a race coefficient. Blood Venous blood specimen / Unknown Venipuncture / Unknown 01/07/2025 12:32 PM EDT 01/07/2025 12:32 PM EDT Luis Eduardo Baltazar MD LAB BLOOD ORDERABLES Final R esult Performing Organization Address City/[facility] Co de Phone Number [facility] [address] [place] [address] * Vitamin D 25 Hydroxy (01/07/2025 12:32 PM EDT) Vitamin D 25 Hydroxy 39.0 20.0 - 80.0 ng/mL 01/07/2025 7:06 PM EDT [facility] Blood Venous blood specimen / Unknown Venipuncture / Unknown 01/07/2025 12:32 PM EDT 01/07/2025 12:32 PM EDT Narrative [facility] - 01/07/2025 7:06 PM EDT Testing performed on [employer] Certified Registered Locksmith, standardized against NIST SRM 2972. When testing samples from patients whose predominant form of vitamin D is vitamin D2, such as patients receiving vitamin D2 supplementation, results that are subtherapeutic should be confirmed with another method, such as LC-MS/MS, before being used for patient management. Vitamin D, 25-Hydroxy reference range, age 18 years and up: Deficiency: <12 ng/mL Insufficiency: 12 to 19 ng/mL Sufficiency: 20 to 80 ng/mL Possible toxicity: >100 ng/mL Luis Eduardo Baltazar MD LAB BLOOD ORDERABLES Final R esult Performing Organization Address [facility] de Phone Number [facility] [address] [place] [address] * (ABNORMAL) Ionized calcium, serum (01/07/2025 12:32 PM EDT) Ionized Calcium, Serum 5.9(H) 4.6 - 5.3 mg/dL LAB HEMATOLOGY METHOD 01/07/2025 2:55 PM EDT [facility] Blood Venous blood specimen / Unknown Venipuncture / Unknown 01/07/2025 12:32 PM EDT 01/07/2025 12:32 PM EDT Luis Eduardo Baltazar MD LAB BLOOD ORDERABLES Final R esult Performing Organization Address City/[facility]/ZIP Co de Phone Number [facility] [address] [place] [address] * Phosphorus, Plasma (01/07/2025 12:32 PM EDT) Pathologist [facility] Phosphorus, Plasma 3.1 2.5 - 4.5 mg/dL 01/07/2025 3:02 PM EDT [facility] Blood Venous blood specimen / Unknown Venipuncture / Unknown 01/07/2025 12:32 PM EDT 01/07/2025 12:32 PM EDT Luis Eduardo Baltazar MD LAB BLOOD ORDERABLES Final R esult Performing Organization Address [facility] Co de Phone Number [facility] [address] [place] [address] * Magnesium, Plasma (01/07/2025 12:32 PM EDT) [facility] Magnesium, Plasma 2.1 1.9 - 2.4 mg/dL 01/07/2025 3:02 PM EDT [facility] Blood Venous blood specimen / Unknown Venipuncture / Unknown 01/07/2025 12:32 PM EDT 01/07/2025 12:32 PM EDT Luis Eduardo Baltazar MD LAB BLOOD ORDERABLES Final R esult Performing Organization Address City/[facility] Co de Phone Number [facility] [address] [place] [address] * (ABNORMAL) PTH Intact Total (01/07/2025 12:32 PM EDT) [facility] PTH Intact Total 121(H) 9 - 77 pg/mL 01/07/2025 5:14 PM EDT [facility] Blood Venous blood specimen / Unknown Venipuncture / Unknown 01/07/2025 12:32 PM EDT 01/07/2025 12:32 PM EDT Narrative [facility] - 01/07/2025 5:14 PM EDT Assay performed by immunoassay at the [facility]. Performed on [employer] Certified Registered Locksmith chemiluminescent immunoassay, tractable to the World Health Organization's first international standard for PTH from the NIBS, Code 79/500. Results obtained from different test methods or kits cannot be used interchangeably. us Luis Eduardo Baltazar MD LAB BLOOD ORDERABLES Final R esult [facility] [address] [place] [address] documented in this encounter Visit Diagnoses Diagnosis Hypercalcemia- Primary Hyperparathyroidism (CMS/HCC) Hyperparathyroidism, unspecified documented in this encounter Additional Health Concerns Assessment Noted Time PHQ-9 Depression Total Score: 6 01/08/20 10:49 AM EDT A fall risk assessment has been complete d for the patient 01/07/2025 10:49 AM EDT A Body Mass Index follow-up plan has been documented for the patient 01/07/2025 12:20 PM EDT documented as of this encounter Care Teams Box Toe Maker Relationship Specialty Start Date End Date Jono Hill MD [address] [place] [id number] PCP - General Internal Medicine 01/07/25 documented as of this encounter
--- OUTSIDE RECORDS SUMMARY | 2025-01-16 10:13 | XMS_ITS | Encounter Summary ---
Author Organization [facility] Address [address] [place] [address] Care Team Providers Care Senior Physical Therapist Name Role Phone Jono Hill MD Primary Care Provider [phone] Encounter Details Date Type Department Care Team (Latest Contact Info) Description 01/07/2025 Travel Social History Tobacco Use Types Packs/Day Years Used Date Smoking Tobacco: Never Passive Smoke Exposure: Never Smokeless Tobacco: Never Alcohol Use Standard Drinks/Week Comments Never 0 [...] on file documented as of this encounter Functional Status * Over the [...] Questionnaire-2 Score 2 01/07/2025 10:49 AM EDT Sweat, Summa L * Question Answer Date of Assessment Author Trouble falling or staying asleep, or sleeping too much Not at all 01/07/2025 10:49 AM EDT Sweat, Summa L Feeling tired or having little energy Several days 01/07/2025 10:49 AM EDT SweatCherie Poor appetite or overeating Nearly every day 10:49 AM EDT SweatCherie Feeling bad about yourself - or that you are a failure or have let yourself or your family down Not at all 01/07/2025 10:49 AM EDClaudy SweatCherie Trouble concentrating on things, such as reading the newspaper or watching television Not at all 01/07/2025 10:49 AM EDClaudy SweatCherie L Moving or speaking so slowly that other people could have noticed? Or the opposite - being so fidgety or restless that you have been moving around a lot more than usual. Not at all 01/07/2025 10:49 AM EDClaudy SweatCherie Thoughts that you would be better off or hurting yourself in some way Not at all 01/07/2025 10:49 AM EDClaudy SweatCherie Patient Health Questionnaire-9 Score 6 01/07/2025 10:49 AM EDClaudy SweatCherie * How difficult have these problems made it for you to do your work, take care of things at home, or get along with other people? Answer Date of Assessment Author Not difficult at all 01/07/2025 10:49 AM EDT Swe atCherie documented as of this encounter Plan of Treatment Upcoming Encounters Date Type Department Care Team (Late st Contact Info) Description 02/03/2025 10:00 AM EST Appointment [facility] [address], [address] [place] [address] 02/03/2025 10:20 AM EST Appointment [facility] [address], [address] [place] [address] 05/18/2025 11:20 AM EST Office Visit [facility] [address], [address] [place] [address] Luis Eduardo Baltazar MD [address] [id number] documented as of this encounter Visit Diagnoses Not on filedocumented in this encounter Additional Health Concerns Assessment Noted Time PHQ-9 Depression Total Score: 6 01/08/20 10:49 AM EDT A fall risk assessment has been complete d for the patient 01/07/2025 10:49 AM EDT A Body Mass Index follow-up plan has been documented for the patient 01/07/2025 12:20 PM EDT documented as of this encounter Care Teams Senior Physical Therapist Relationship Specialty Start Date End Date Jono Hill MD [address] [place] [address] PCP - General Internal Medicine 01/07/25 documented as of this encounter
--- OUTSIDE RECORDS SUMMARY | 2025-01-16 10:13 | XMS_ITS | Encounter Summary ---
Author Organization [facility] Address [address] [place] [address] Care Team Providers Care Employee Operations Examiner Name Role Phone Jono Hill MD Primary Care Provider [phone] Reason for Referral * Consultation (Routine) - Closed Specialty Diagnoses / Procedures Referred By Contac t Referred To Contact Endocrinology Diagnoses Parathyroid related hypercalcemia (CMS/HCC) Emma Loomis APRN [address] [address] Phone: tel: fax: [facility] [address] [place] [address] Phone: tel: fax: Referral ID Status Reason Start Date Expiration Date V isits Requested Visits Authorized [id number] Closed Specialty Services Required 10/31/2024 05/02/2026 1 1 Encounter Details Date Type Department Care Team (Latest Contact Info) Description 10/31/2024 Community Orders Community Practice [address] [place] [address] Emma Loomis APRN [address] [address] Parathyroid related hypercalcemia (CMS/HCC) (Primary [...] Info) Description 02/03/2025 10:00 AM EST Appointment [facility] [address], [address] [place] [address] 02/03/2025 10:20 AM EST Appointment [facility] [address], [address] [place] [address] 05/18/2025 11:20 AM EST Office Visit [facility] [address], [address] [place] [address] Luis dEuardo Baltazar MD [address] [facility] [address] [place] [id number] Scheduled Referrals Name Type Priority Associated Diagnoses Orde r Schedule Ambulatory referral to Endocrinology Outpatient Referral Routine Parathyroid related hypercalcemia (CMS/HCC) Expected: 10/31/2024 (Approximate), Expires: 05/04/2026 documented as of this encounter Visit Diagnoses Diagnosis Parathyroid related hypercalcemia (CMS/HCC)- Primary Hyperparathyroidism, unspecified documented in this encounter Care Teams Employee Operations Examiner Relationship Specialty Start Date End Date Jono Hill MD [address] [place] [address] PCP - General Internal Medicine 01/07/25 documented as of this encounter
--- OUTSIDE RECORDS SUMMARY | 2025-01-16 10:13 | XMS_ITS | Clinical Summary ---
Author Organization [facility] Address [address] [place] [address] Care Team Providers Care Gta Name Role Phone Jono Hill MD Primary Care Provider [phone] Allergies No known active allergies Medications ALPRAZolam (Xanax) 0.5 MG tablet 11/27/2024 Active lisinopril 10 MG tablet 11/08/2024 Active BABY ASPIRIN PO Take by mouth. Active Encounters Date Type Department Care Team Description 01/13/2025 [facility] [address] [place] [address] Luis Eduardo Baltazar MD 01/07/2025 10:40 AM EDT Office Visit [facility] [address], [address] [place] [address] Luis Eduardo Baltazar MD Hypercalcemia (Primary Dx); Hyperparathyroidism (CMS/HCC) 01/07/2025 Travel 10/31/2024 Community [facility] [address] [place] [address] Emma Loomis APRN Parathyroid related hypercalcemia (CMS/HCC) (Primary Dx) from Last 3 Months Immunizations Immunization Administration Dates Next Due Pneumococcal Conjugate PCV 13 02/17/2019 Pneumococcal Polysaccharide PPV23 06/28/2017 TD (adult), 2 Lf tetanus tox oid, preservative free, adsorbed 06/09/1996 Social History Tobacco Use Types Packs/Day Years [...] on file Sexual Orientation Not on file Last Filed Vital Signs Vital Sign Reading [...] Mass Index 32.94 01/07/2025 10:57 AM EDT Plan of Treatment Upcoming Encounters Date Type Department Care Team (Late st Contact Info) Description 02/03/2025 10:00 AM EST Appointment [facility] [address], [address] [place] [address] 02/03/2025 10:20 AM EST Appointment [facility] [address], [address] [place] [address] 05/18/2025 11:20 AM EST Office Visit [facility] [address], [address] [place] [address] Luis Eduardo Baltazar MD [facility] [facility] [address] [place] [address] Health Maintenance Due Date Last Done Comments [facility]-Bone Density Scan 1950 [facility]-Hepatitis C Screening 1950 [facility]-Medicare Annual Wellness (AWV) 1950 [facility]-/Child/Adol SDOH Screenings 1950 [facility]- SDOH Screenings 1970 [facility]-Adult SDOH Screenings 1970 [facility]-DTaP,Tdap,and Td Vaccine s (1 - Tdap) 06/10/1996 06/09/1996 CT Colonography 1997 Colonoscopy 1997 FIT-DNA 1997 FIT 1997 FOBT 1997 Sigmoidoscopy 1997 [facility]-Colorectal Cancer Screening 1997 [facility]-Breast Cancer Screening 2002 [facility]-Zoster Vaccines (1 of 2) 2002 XIL-VOHIR-53 Vaccine (2 - season) 2024 06/09/2020 [facility]-Influenza Vaccine (#1) 2024 [facility]-Depression Screening 01/07/2026 025, 01/07/2025 [facility]-RSV Vaccine: 60+ Years o r (1 - 1-dose 75+ series) 2027 [facility]-Pneumococcal Vaccine: 50 + Years Completed 02/17/2019, 06/28/2017 [facility]-Obesity Intervention Completed 01/07/2025 HPV Vaccines Aged Out No longer eligi [...] on patient's age to complete this topic Procedures Procedure Name Priority Date/Time Associated Diagnosis Comments PTH INTACT TOTAL Routine 01/07/2025 12:3 2 PM EDT Hypercalcemia Hyperparathyroidis m (CMS/HCC) MAGNESIUM, PLASMA Routine 01/07/2025 12: 32 PM EDT Hypercalcemia Hyperparathyroidis m (CMS/HCC) PHOSPHORUS, PLASMA Routine 01/07/2025 12 :32 PM EDT Hypercalcemia Hyperparathyroidis m (CMS/HCC) IONIZED CALCIUM, SERUM Routine 12:32 PM EDT Hypercalcemia Hyperparathyroidis m (CMS/HCC) VITAMIN D 25 HYDROXY Routine 01/07/2025 12:32 PM EDT Hypercalcemia Hyperparathyroidis m (CMS/HCC) COMPREHENSIVE METABOLIC PANEL, PLASMA Routine 01/07/2025 12:32 PM EDT Hypercalcemia Hyperparathyroidis m (CMS/HCC) from Last 3 Months Results * (ABNORMAL) Ionized calcium, serum (01/07/2025 12:32 PM EDT) Ionized Calcium, Serum 5.9(H) 4.6 - 5.3 mg/dL LAB HEMATOLOGY METHOD 01/07/2025 2:55 PM EDT [facility] Blood Venous blood specimen / Unknown Venipuncture / Unknown 01/07/2025 12:32 PM EDT 01/07/2025 12:32 PM EDT us Luis Eduardo Baltazar MD LAB BLOOD ORDERABLES Final R esult Performing Organization Address City/State/[facility] Co de Phone Number [facility] [address] [place] [address] * Vitamin D 25 Hydroxy (01/07/2025 12:32 PM EDT) Vitamin D 25 Hydroxy 39.0 20.0 - 80.0 ng/mL 01/07/2025 7:06 PM EDT [facility] Blood Venous blood specimen / Unknown Venipuncture / Unknown 01/07/2025 12:32 PM EDT 01/07/2025 12:32 PM EDT Narrative [facility] - 01/07/2025 7:06 PM EDT Testing performed on [employer], standardized against NIST SRM 2972. When testing [...] ORDERABLES Final R esult Performing Organization Address City/[facility] Co de Phone Number [facility] [address] [place] [address] * Phosphorus, Plasma (01/07/2025 12:32 PM EDT) Phosphorus, Plasma 3.1 2.5 - 4.5 mg/dL 01/07/2025 3:02 PM EDT [facility] Blood Venous blood specimen / Unknown Venipuncture / Unknown 01/07/2025 12:32 PM EDT 01/07/2025 12:32 PM EDT Luis Eduardo Baltazar MD LAB BLOOD ORDERABLES Final R esult Performing Organization Address [facility] Co de Phone Number [facility] [address] [place] [address] * (ABNORMAL) PTH Intact Total (01/07/2025 12:32 PM EDT) PTH Intact Total 121(H) 9 - 77 pg/mL 01/07/2025 5:14 PM EDT [facility] Blood Venous blood specimen / Unknown Venipuncture / Unknown 01/07/2025 12:32 PM EDT 01/07/2025 12:32 PM EDT Narrative [facility] - 01/07/2025 5:14 PM EDT Assay performed by immunoassay at the [facility]. Performed on [employer] Analyst chemiluminescent immunoassay, tractable to the World Health Organization's first international standard for PTH from the NIBSC, Code 79/500. Results obtained from different test methods or kits cannot be used interchangeably. Luis Eduardo Baltazar MD LAB BLOOD ORDERABLES Final R esult Performing Organization Address [facility] Co de Phone Number [facility] [address] [place] [address] * Magnesium, Plasma (01/07/2025 12:32 PM EDT) Pathologist [facility] Magnesium, Plasma 2.1 1.9 - 2.4 mg/dL 01/07/2025 3:02 PM EDT [facility] Blood Venous blood specimen / Unknown Venipuncture / Unknown 01/07/2025 12:32 PM EDT 01/07/2025 12:32 PM EDT Luis Eduardo Baltazar MD LAB BLOOD ORDERABLES Final R esult [facility] [address] [place] [address] * (ABNORMAL) Comprehensive Metabolic Panel, Plasma (01/07/2025 12:32 PM EDT) Pathologist [facility] Glucose, Plasma 104(H) 74 - 99 mg/dL 01/07/2025 3:02 PM EDT [facility] BUN, Plasma 14 8 - 23 mg/dL 01/07/2025 3:02 PM EDT [facility] Creatinine, Plasma 0.72 0.60 - 1.10 mg/dL 01/07/2025 3:02 PM EDT [facility] BUN/Creatinine Ratio 19 01/07/2025 3:02 PM EDT [facility] Sodium, Plasma 144 136 - 145 mmol/L 01/07/2025 3:02 PM EDT [facility] Potassium, Plasma 4.5 3.6 - 4.9 mmol/L 01/07/2025 3:02 PM EDT [facility] Chloride, Plasma 106 97 - 107 mmol/L 01/07/2025 3:02 PM EDT [facility] CO2, Plasma 25 22 - 29 mmol/L 01/07/2025 3:02 PM EDT [facility] Anion Gap 13 6 - 16 mmol/L 01/07/2025 3:02 PM EDT [facility] Total Calcium, Plasma 10.9(H) 8.9 - 10.2 mg/dL 01/07/2025 3:02 PM EDT [facility] Total Protein 7.1 6.3 - 7.9 g/dL 01/07/2025 3:02 PM EDT [facility] Albumin, Plasma 4.5 3.5 - 5.2 g/dL 01/07/2025 3:02 PM EDT [facility] AST, Plasma 23 10 - 35 U/L 01/07/2025 3:02 PM EDT [facility] ALT, Plasma 14 10 - 35 U/L 01/07/2025 3:02 PM EDT [facility] Alkaline Phosphatase, Plasma 95 46 - 142 U/L 01/07/2025 3:02 PM EDT [facility] Total Bilirubin, Plasma 0.7 0.2 - 1.1 mg/dL 01/07/2025 3:02 PM EDT [facility] eGFRcr 89.0 mL/min/1.7 3m*2 01/07/2025 3:02 PM EDT [facility] Comment:Reported eGFRcr in m L/min/1.73m2 is based the CKD-EPI 2020 equation that does not use a race coefficient. Blood Venous blood specimen / Unknown Venipuncture / Unknown 01/07/2025 12:32 PM EDT 01/07/2025 12:32 PM EDT us Luis Eduardo Baltazar MD LAB BLOOD ORDERABLES Final R esult [facility] [address] [place] [address] from Last 3 Months Insurance Care Teams Gta Relationship Specialty Start Date End Date Jono Hill MD [address] [place] [address] PCP - General Internal Medicine 01/07/25
--- OUTSIDE RECORDS SUMMARY | 2025-01-16 10:13 | XMS_ITS | Encounter Summary ---
Author Organization [facility] Address [address] [place] [address] Care Team Providers Care Environmental Project Manager Name Role Phone Jono Hill MD Primary Care Provider [phone] Encounter Details Date Type Department Care Team (Late Contact Info) Description 01/13/2025 Results [facility] [address] [place] [address] Luis Eduardo Baltazar MD [address] [facility] [address] [place] [address] Social History Tobacco Use Types Packs/Day Years [...] Encounters Date Type Department Care Team (Late Contact Info) Description 02/03/2025 10:00 AM EST Appointment [facility] [address] , [address] [place] [phone] 02/03/2025 10:20 AM EST Appointment [facility] [address] , [address] [place] [address] 05/18/2025 11:20 AM EST Office Visit [facility] [address], [address] [place] [address] Luis Eduardo Baltazar MD [address] [facility] [address] [place] [address] documented as of this encounter Visit Diagnoses [...] documented as of this encounter Care Teams Environmental Project Manager Relationship Specialty Start Date End Date Jono Hill MD [address] [facility] [address] [place] [address] PCP - General Internal Medicine 01/07/25 documented as of this encounter
[2025-01-16 13:02] LABS: Collection Time,Urine 24 hours; Creatinine 24 Hour,Urine 990 mg/24hr (630-2500); Total Volume,Urine 2750 mL (250-2400)
[2025-01-17 12:11] LABS: Calcium, Urine 9.1 mg/dL (Not Estab.)
== END 2025-01-16 23:59 | disposition home or self-care (01) ==
LOC: LAB 10:11
PROVIDERS: PCP Internal Medicine Adolescent Medicine; Visit Provider Internal Medicine Endocrinology, Diabetes & Metabolism
DX: E21.3 Hyperparathyroidism, unspecified (principal)
CPT/HCPCS: 82340; 82570